=== PATIENT | female | born 1965 | race Two or more races ===

== ENCOUNTER → 2017-11-13 | Outpatient (CLI) | payer OTHER | END | disposition home or self-care (01) | LOC: RAD 11:58 | DX: S92.301A Fracture of unspecified metatarsal bone(s), right foot, initial encounter for closed fracture (principal) ==

== ENCOUNTER 2017-12-21 14:01 | Outpatient (CLI) | payer OTHER | END 2017-12-21 14:35 | disposition home or self-care (01) | LOC: RAD 14:01 | DX: M25.571 Pain in right ankle and joints of right foot (principal) ==